=== PATIENT | female | born 1995 | race American Indian/Alaskan Native ===

== ENCOUNTER 2019-01-24 17:51 | Outpatient (CLI) | payer BC, MEDICAID ==
[2019-01-24 18:16] VITALS: BP 97/56
[2019-01-24] MEDS ORDERED: LACTATED RINGERS 500 ML IV ONE (19:05)
[2019-01-24 20:05] LABS: Bacteria,Urine 1+ /HPF (Negative); Bilirubin,Urine NEG (Negative); Blood,Urine LG (Negative); Color,Urine Yellow (Yellow); Mucus,Urine 3+ /HPF; Urobilinogen,Urine < 2.0 mg/dL (<2.0)
[2019-01-24 20:10] LABS: RBC,Urine > 182.0 /HPF (0.0-6.0)
[2019-01-24] MEDS ORDERED: XYLOCAINE 1% MPF 5 mL INFILTRATI ONE (20:50)
[2019-01-24] MEDS ORDERED: ROCEPHIN IM ONE (20:50)
--- NOTE | 2019-01-24 20:54 | Event Note ---
Date: 01/24/19 Sono does not appear to show a previa and the cx is long and normal. Will treat for UTI. Rx provided. Pt already has apt in office on 01/29/19 and was advised to keep this apt.
--- NOTE | 2019-01-24 21:27 | Ultrasound Report ---
PROCEDURE: US OB LIMITED TECHNIQUE: Real-time limited sonographic examination was performed for evaluation of each fetus with image documentation (1 or more fetuses). HISTORY: vaginal bleeding COMPARISONS: None FINDINGS: MATERNAL Uterus: Within normal limits Cervix length:, 4.7 cm. Internal Os: closed FETUS IUP: Single living intrauterine Position: Cephalic Placental position: Posterior, grade 0, without previa for placental abruption. Amniotic fluid volume: Normal Heart rate and rhythm: 166 BPM, Regular anatomic survey: Normal IMPRESSION: 1. Single living intrauterine gestation with no evidence for placenta previa or placental abruption This document is electronically signed by Shanthi Prajapati MD., January 24 2019 09:25:18 PM ET
== END 2019-01-24 21:29 | disposition home or self-care (01) ==
LOC: TRG 17:51
PROVIDERS: ATTEND Obstetrics & Gynecology
DX: O47.02 False labor before 37 completed weeks of gestation, second trimester (principal); O20.9 Hemorrhage in early pregnancy, unspecified; Z3A.20 20 weeks gestation of pregnancy
CPT/HCPCS: 76815; 81001; 87086; J0696

== ENCOUNTER 2019-03-14 22:00 | Outpatient (CLI) | payer BC, MEDICAID ==
[2019-03-14 22:34] VITALS: BP 95/60
[2019-03-14] MEDS ORDERED: LACTATED RINGERS 500 ML IV ONE (22:36)
[2019-03-14 23:31] LABS: Bilirubin,Urine NEG (Negative); Blood,Urine SM (Negative); Color,Urine Yellow (Yellow); Mucus,Urine 2+ /HPF; Urobilinogen,Urine < 2.0 mg/dL (<2.0)
== END 2019-03-14 23:58 | disposition home or self-care (01) ==
LOC: TRG 22:00
PROVIDERS: ATTEND Obstetrics & Gynecology
DX: O47.02 False labor before 37 completed weeks of gestation, second trimester (principal); Z3A.27 27 weeks gestation of pregnancy
CPT/HCPCS: 59025; 81001; 87086